=== PATIENT | male | born 2000 | race Caucasian/White ===

== ENCOUNTER 2022-05-17 09:10 | Emergency (ER) | payer OTHER ==
[2022-05-17 09:34] VITALS: O2SAT 100
[2022-05-17] MEDS ORDERED: Adacel Vial IM ONE ×2 (09:38→09:40)
[2022-05-17] MEDS ORDERED: TORAdol 30 mg Injection IM ONE (09:38)
[2022-05-17] MEDS ORDERED: TORAdol 30 mg Injection ONE (09:40)
[2022-05-17] MEDS ORDERED: XYLOCAINE 1% HCL 20 ML MDV ONE (09:41)
--- NOTE | 2022-05-17 10:00 | XRAY ---
Indication: Bite. Laceration. Comparison: None 3 view right wrist demonstrates anterior lateral subcutaneous emphysema. No other bony, articular, or soft tissue abnormalities.
[2022-05-17] MEDS ORDERED: XYLOCAINE 1% HCL 20 ML MDV IJ ONE (10:15)
[2022-05-17] MEDS ORDERED: BACIGUENT PACKET ONE (10:20)
--- NOTE | 2022-05-17 10:24 | ERPHSYRPT ---
- History of Present Illness Source: patient, other (Correctional officers x2) Exam Limitations: no limitations Patient Subjective Stated Complaint: Dog bite at work during training just prior to coming into the ER. [facility]. Patient brought a form with him with details of the dog breed, color, markings, vaccination records. Triage Nursing Assessment: Patient ambulated back to ER without difficulties. Pressure dressing noted to right wrist. Dressing removed. Reported dog bite noted to wrist measuring 0.5cm X 2cm X ?. No active bleeding at this time. Area cleansed with hibiclens and saline and sterile gauze placed over area until MD can access. Also noted 3 small abrasions to left wrist and lower arm with 1 puncture noted to left palm. Patient reports all of these skin alterations were from the dog. 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 Pt received Tdap in ER, and [employer] is up to date on his immunizations. Pt is R handed and denies any other injuries. Pain is moderate. Occurred: just prior to arrival Method of Injury: other (Dog Bite) Quality: constant Severity of Pain-Max: severe Severity of Pain-Current: moderate Extremities Pain Location: forearm: left, wrist: right Modifying Factors: Improves With: movement Associated Symptoms: none Allergies/Adverse Reactions: No Known Drug Allergies Allergy (Verified 05/17/22 09:20) Hx Tetanus, Diphtheria Vaccination/Date Given: No (Not tetanus) Hx Influenza Vaccination/Date Given: No Hx Pneumococcal Vaccination/Date Given: No Immunizations Up to Date: Yes Travel Risk - International Travel Have you traveled outside of the country in past 3 weeks: No - Coronavirus Screening Are you exhibiting any of the following symptoms?: No Close contact with a COVID-19 positive Pt in past 14-21 Days: No - Vaccine Status Have you recieved a Covid-19 vaccination: No - Review of Systems Constitutional: No Symptoms Eyes: No Symptoms Ears, Nose, & Throat: No Symptoms Respiratory: No Symptoms Cardiac: No Symptoms Abdominal/Gastrointestinal: No Symptoms Genitourinary Symptoms: No Symptoms Skin: No Symptoms Neurological: No Symptoms Psychological: No Symptoms Endocrine: No Symptoms Hematologic/Lymphatic: No Symptoms Immunological/Allergic: No Symptoms - Past Medical History Pertinent Past Medical History: Yes Respiratory History: Bronchitis Musculoskeletal History: Fractures - Past Surgical History Past Surgical History: Yes Other Surgical History: wisdom teeth removal - Social History Smoking Status: Current some day smoker Exposure to second hand smoke: No Drug Use: none - Nursing Vital Signs Nursing Vital Signs: Initial Vital Signs Temperature 98.6 F 05/17/22 09:21 Pulse Rate 62 05/17/22 09:21 Respiratory Rate 18 05/17/22 09:21 Blood Pressure 117/69 05/17/22 09:21 O2 Sat by Pulse Oximetry 100 05/17/22 09:21 Pain Scale Pain Intensity 2 WNL - Physical Exam General Appearance: no apparent distress Eyes, Ears, Nose, Throat Exam: normal ENT inspection Neck Exam: normal inspection, non-tender, supple, full range of motion, No Brudzinski, No Kernig's, No meningismus Cardiovascular/Respiratory Exam: chest non-tender, normal breath sounds, regular rate/rhythm, heart sounds normal Abdominal Exam: non-tender, soft Back Exam: normal inspection, normal range of motion, No CVA tenderness, No vertebral tenderness Shoulder Exam: normal inspection Elbow/Forearm Exam: normal inspection Wrist Exam: pain (2cm R ventral wrist laceration radial side/FROM of all digits/Good distal capillary return and sensation of all digits/Small puncture wound L palm/Good hemostasis/Good distal capillary return and sensation of all digits of L hand/Good radial pulse B) DTR - Upper Extremity Exam: bicep (R): 2+, bicep (L): 2+ Neuro/Tendon Exam: normal sensation, normal motor functions, normal tendon functions, responds to pain Mental Status Exam: alert, oriented x 3, cooperative Skin Exam: normal color, warm, dry, No rash SpO2 Interpretation: normal SpO2: 100 O2 Delivery: Room Air Procedures - Laceration/Wound Repair Right Volar Wrist Time of Procedure: 10:16 Wound Location: Right Wound Length (cm): 2 Wound's Depth, Shape: linear Wound Explored: no foreign body noted Irrigated: Yes (Irrigated 100ml Sterile water/Hibiclens) Hibiclens Prep: Yes Anesthesia: local, 1% Lidocaine Volume Anesthetic (ccs): 5 Wound Debrided: minimal Wound Repaired With: sutures Suture Size/Type: 3-0 (3.0 Ethilon x7) Number of Sutures: 7 Layer Closure?: No Sterile Dressing Applied?: Yes Left Hand Time of Procedure: 10:16 Wound Location: Left (L palm puncture wound/explored wo need for repair) Wound's Depth, Shape: superficial Wound Explored: clean Hibiclens Prep: Yes Anesthesia: local, 1% Lidocaine - Course Nursing assessment & vital signs reviewed: Yes - Radiology Exams Hand X-ray Interpretation: Discussed w/ radiologist (SubQ air, otherwise WNL) Ordered Tests: Active Orders 24 hr Category Date Time Status WRIST (MIN 3 VIEWS) Stat Exams 05/17/22 09:39 Completed Medication Summary Discontinued Medications Generic Name Dose Route Start Last Admin Trade Name Freq PRN Reason Stop Dose Admin Bacitracin Zinc Confirm 05/17/22 10:20 Bacitracin Packet 1 Each Pckt Administered 05/17/22 10:21 Dose 1 each .ROUTE .STK-MED ONE Bacitracin Zinc 0.9 each 05/17/22 10:40 05/17/22 10:41 Bacitracin Packet 1 Each Pckt TP 05/17/22 10:41 0.9 each STAT ONE Administration Diphtheria/Tetanus/Acell Pertussis 0.5 ml 05/17/22 09:38 05/17/22 09:43 Tdap --Diph,Pertuss(Acell),Tet Vac/Pf 0.5 Ml Vial IM 05/17/22 09:39 0.5 ml .ONCE ONE Administration Diphtheria/Tetanus/Acell Pertussis Confirm 05/17/22 09:40 Tdap --Diph,Pertuss(Acell),Tet Vac/Pf 0.5 Ml Vial Administered 05/17/22 09:41 Dose 0.5 ml IM .STK-MED ONE Ketorolac Tromethamine 15 mg 05/17/22 09:38 05/17/22 09:43 Ketorolac Tromethamine 30 Mg/Ml Inj IM 05/17/22 09:39 15 mg STAT ONE Administration Ketorolac Tromethamine Confirm 05/17/22 09:40 Ketorolac Tromethamine 30 Mg/Ml Inj Administered 05/17/22 09:41 Dose 30 mg .ROUTE .STK-MED ONE Lidocaine HCl Confirm 05/17/22 09:41 Lidocaine Hcl 1% 20 Ml Mdv 20 Ml Ml Administered 05/17/22 09:42 Dose 3 ml .ROUTE .STK-MED ONE Lidocaine HCl 5 ml 05/17/22 10:15 05/17/22 10:16 Lidocaine Hcl 1% 20 Ml Mdv 20 Ml Ml IJ 05/17/22 10:16 5 ml STAT ONE Administration - Progress Progress: improved Progress Note: 05/17/22 10:30 Tdap/15mg IM Toradol Vital signs/nursing note/Xray all reviewed Xray result shared w pt L 1st digit ventral laceration repaired w 3.0 Ethilon x7/No comps/No evidence of tendon or arterial injury/Good distal capillary return and sensation of all 10 digits/Good radial pulse B L 2nd digit ventral avulsion steri-stripped per nursing/NVI Additional history per fellow correctional officers No food or housing insecurities noted Pt placed on Augmentin 05/17/22 14:54 05/17/22 14:56 Counseled pt/family regarding: diagnosis, need for follow-up, rad results - Departure Departure Disposition: Home Clinical Impression: Bite by animal, Wrist laceration Condition: Stable Critical Care Time: No Referrals: DOCTOR,NO FAMILY [Primary Care Provider] - Follow up/PCP as directed Instructions: Animal Bites (DC), Laceration Repair With Stitches (DC) Additional Instructions: Keep right wrist laceration repair dry for 2 days, then gently wash w mild soap/water 1-2 times a day(Do not scrub stitches) Sutures out in 10 days Watch for signs of infection-increasing redness/any pus/increasing swelling/Temperature greater than 100.5 Wash R hand puncture wound starting today Start Augmentin twice a day for 10 days Forms: Work/School Release Form Prescriptions: Amox Tr/Potass Clav. 875 mg [Augmentin 875-125 Tablet] 1 each PO BID #20 tablet
[2022-05-17] MEDS ORDERED: BACIGUENT PACKET TP ONE (10:40)
[2022-05-17 10:44] VITALS: BP 117/57; PULSE 77
== END 2022-05-17 10:46 | disposition home or self-care (01) ==
LOC: ED 09:10
DX: S61.551A Open bite of right wrist, initial encounter (principal); S60.572A Other superficial bite of hand of left hand, initial encounter; W54.0XXA Bitten by dog, initial encounter; Y93.K9 Activity, other involving animal care; Y92.149 Unspecified place in prison as the place of occurrence of the external cause; Y99.0 Civilian activity done for income or pay; Z28.310 Unvaccinated for COVID-19; Z72.0 Tobacco use
CPT/HCPCS: 12001; 73110; 90471; 90715; 96372; 99283; J1885; A9270-GY